=== PATIENT | female | born 1985 | race Caucasian/White ===

== ENCOUNTER 2023-01-21 13:59 | Emergency (ER) | payer MEDICAID ==
[2023-01-21] MEDS ORDERED: CLINDAMYCIN 150 MG CAPSULE PO STA (14:43)
--- NOTE | 2023-01-21 14:47 | ED Physician Documentation ---
PD HPI HEENT - Stated complaint Stated Complaint: FACIAL SWELLING - Chief complaint Chief Complaint: Heent - History obtained from History obtained from: Patient - Additional information Additional information: The patient comes to the emergency department chief complaint of right facial swelling which seems to be emanating from a tooth that is hurting on her right mandible. The patient states it started yesterday. She has not previously had trouble with the tooth. She is still trying to figure out who in town will take her insurance as far as dentists are concerned. No fevers or chills. No throat swelling or difficulty breathing. No other complaints at this time. PD PAST MEDICAL HISTORY - Present Medications Home Medications: Ambulatory Orders Medication Instructions Recorded Confirmed HYDROcod/ACETAM 5/325 [[place] 5/325] 1 - 2 tablet PO Q6H PRN #14 tablet 01/21/23 clindamycin HCL [Clindamycin HCl] 300 mg PO Q8HR #21 cap 01/21/23 - Allergies Allergies/Adverse Reactions: Allergies Allergy/AdvReac Type Severity Reaction Status Date / Time amoxicillin AdvReac Unknown Verified 01/21/23 14:11 PD ED PE NORMAL - Vitals Vital signs reviewed: Yes - General General: Alert and oriented X 3, No acute distress, Well developed/nourished - HEENT HEENT: Atraumatic, PERRL, EOMI, Moist mucous membranes, Other (No obvious dental decay. Tenderness of right mandibular gingiva in the sulcus with some gingival edema associated with the first molar. No facial edema Superior to the mandible. No mass or fluctuance.) - Neck Neck: Supple, no meningeal sign - Respiratory Respiratory: No respiratory distress - Derm Derm: Normal color, Warm and dry, No rash - Extremities Extremities: No deformity - Neuro Neuro: Alert and oriented X 3 - Psych Psych: Normal mood, Normal affect Results - Vitals Vitals: Vital Signs - 24 hr 01/21/23 01/21/23 14:09 15:02 Temperature 36.9 C Heart Rate 50 L 52 L Respiratory 16 22 Rate Blood Pressure 132/76 H 130/82 H O2 Saturation 98 99 Oxygen O2 Source Room air PD Medical Decision Making - ED course Complexity details: considered differential, d/w patient ED course: I discussed with the patient that at this point in time, she appears to have a dental infection we will start antibiotics. I have advised her to call the dental offices in town after the weekend and determine who she can see, and make the soonest possible appointment. We have discussed the usual indications for return. Departure - Departure Disposition: 01 Home, Self Care Clinical Impression: Dental infection Condition: Stable Instructions: ED Tooth Pain Prescriptions: clindamycin HCL [Clindamycin HCl] 300 mg PO Q8HR #21 cap HYDROcod/ACETAM 5/325 [[place] 5/325] 1 - 2 tablet PO Q6H PRN #14 tablet PRN Reason: Pain Comments: Your prescriptions have been electronically transmitted to the [facility] pharmacy in [place]. You been started on your first dose of antibiotics here. Please call the dental offices first thing on Sunday morning to see who will accept your insurance and make the soonest possible follow-up appointment to have definitive care of your teeth. Forms: PCP List Discharge Date/Time: 01/21/23 15:03
[2023-01-21 15:09] VITALS: BP 130/82; O2SAT 99
== END 2023-01-21 15:03 | disposition home or self-care (01) ==
LOC: ED 13:59
DX: K04.7 Periapical abscess without sinus (principal)
CPT/HCPCS: 99282; 99283; A9270